=== PATIENT | female | born 1995 | race Two or more races ===

== ENCOUNTER 2021-09-04 10:13 | Emergency (ER) | payer MEDICAID ==
[~2021-09-04] VITALS: Ht 162.6 cm; Wt 99.8 kg
[2021-09-04] MEDS ORDERED: CIP03OS LEFTEYE (10:36)
[2021-09-04 10:45] VITALS: BP 125/78
[2021-09-04] MEDS ORDERED: TOBR0.3S OP (10:55)
== END 2021-09-04 11:09 | disposition home or self-care (01) ==
LOC: ER 10:13
DX: H10.32 Unspecified acute conjunctivitis, left eye (principal); H11.422 Conjunctival edema, left eye; J45.909 Unspecified asthma, uncomplicated; Z79.899 Other long term (current) drug therapy

== ENCOUNTER 2022-06-21 16:17 | Emergency (ER) | payer MEDICAID ==
[~2022-06-21] VITALS: Ht 160 cm; Wt 105.6 kg
[~2022-06-21 16:17] MED LIST: TOBR0.3S OP
[2022-06-21 16:53] LABS: Basophils # (auto) 0.1 10 ^3/uL (0-0.2); Basophils % (auto) 0.6 % (0.0-2.0); Eosinophils # (auto) 0.1 10 ^3/uL (0-0.8); Eosinophils % (auto) 0.7 % (0.0-7.0); Hematocrit 37.7 % (36.0-46.0); Hemoglobin 12.6 g/dL (12.2-16.2); Lymphocytes # (auto) 2.5 10 ^3/uL (0.4-5.4); Lymphocytes % (auto) 25.2 % (10.0-50.0); Mean Corpuscular Hemoglobin 27.3 pg (28.0-32.0); Mean Corpuscular Hgb Conc. 33.5 g/dL (32.0-36.0); Mean Corpuscular Volume 81.3 fL (80.0-100.0); Monocytes # (auto) 0.6 10 ^3/uL (0-1.3); Monocytes % (auto) 6.3 % (0.0-12.0); Neutrophils # (auto) 6.5 10 ^3/uL (1.6-8.6); Neutrophils % (auto) 67.2 % (37.0-80.0); Nucleated Red Blood Cells % 0.1 %; Red Blood Cells 4.64 10^6/uL (4.0-5.20); Red Cell Distribution Width 13.7 % (11.8-14.3); White Blood Cell 9.7 10^3/uL (4.4-10.8)
[2022-06-21 17:04] LABS: Urine Bacteria NONE SEEN /hpf (None Seen); Urine Blood Negative /uL (Negative); Urine Specific Gravity 1.012 (1.001-1.035); Urine WBC <1 /hpf (0 - 5)
[2022-06-21 17:06] LABS: Albumin 3.5 g/dL (3.4-5.0); BUN/Creatinine Ratio 12.1; Calcium 9.3 mg/dL (8.5-10.1); Potassium 3.9 mmol/L (3.5-5.1)
[2022-06-21 17:09] LABS: Bilirubin, Total 0.2 mg/dL (0.2-1.0); Total Protein 7.3 g/dL (6.4-8.2)
[2022-06-21] MEDS ORDERED: IOHEXOL 300 MG/ML 100ML BOTTLE IJ ONE (19:30)
[2022-06-21 21:05] VITALS: BP 150/82
== END 2022-06-21 21:06 | disposition home or self-care (01) ==
LOC: ER 16:17
DX: D36.9 Benign neoplasm, unspecified site (principal); R10.31 Right lower quadrant pain; J45.909 Unspecified asthma, uncomplicated; Z79.2 Long term (current) use of antibiotics
CPT/HCPCS: 36415; 74177; 80053; 81001; 81025; 85025; 86141; 99285; Q9967